=== PATIENT | female | born 1980 | race Caucasian/White ===

== ENCOUNTER 2018-08-06 07:36 | Emergency (ER) | payer BC, MEDICAID ==
--- NOTE | 2018-08-06 08:09 | EDM.PDOC ---
ED HPI GENERAL MEDICAL PROBLEM - General Chief Complaint: Lower Extremity Injury/Pain Stated Complaint: RT LEG Time Seen by Provider: 08/06/18 08:00 Source of Information: Reports: Patient History Limitations: Reports: No Limitations - History of Present Illness INITIAL COMMENTS - FREE TEXT/NARRATIVE: Slipped on ice, twisted right ankle last night at 2230, complains of pain and is unable to bear weight. Onset Date: 08/05/18 Onset Time: 22:30 Location: Reports: Lower Extremity, Right Quality: Reports: Ache Severity: Moderate Improves with: Reports: None Worsens with: Reports: Movement Context: Reports: Activity Associated Symptoms: Reports: No Other Symptoms Right Ankle Pain Score (Numeric/FACES): 2 - Related Data Allergies Allergy/AdvReac Type Severity Reaction Status Date / Time No Known Allergies Allergy Verified 08/06/18 07:52 Home Meds: Home Meds NK [No Known Home Meds] 08/06/18 [History] Past Medical History - Past Health History Medical/Surgical History: Denies Medical/Surgical History Review of Systems - Review of Systems Review Of Systems: ROS reveals no pertinent complaints other than HPI. ED EXAM, GENERAL - Physical Exam Exam: See Below Exam Limited By: No Limitations General Appearance: Alert, WD/WN, No Apparent Distress Nose: Normal Inspection Throat/Mouth: No Airway Compromise Head: Atraumatic, Normocephalic Neck: Full Range of Motion Respiratory/Chest: No Respiratory Distress Peripheral Pulses: 2+: Dorsalis Pedis (R) Extremities: Other (bilateral malleolar tenderness of right ankle with lateral malleolar swelling, ankle is stable) Neurological: Alert, Normal Cognition, No Motor/Sensory Deficits Psychiatric: Normal Affect Skin Exam: Warm, Dry, Intact Course - Vital Signs Last Recorded V/S: Last Vital Signs Temp 36.8 C 08/06/18 07:36 Pulse 100 08/06/18 07:36 Resp 18 08/06/18 07:36 BP 128/83 08/06/18 07:36 Pulse Ox 99 08/06/18 07:36 - Orders/Labs/Meds Orders: Active Orders 24 hr Category Date Time Status Splinting [RC] CONTINUOUS Care 08/06/18 08:29 Ordered Ankle Min 3V Rt [CR] Stat Exams 08/06/18 08:03 Taken - Radiology Interpretation Free Text/Narrative:: Right Ankle XR: No acute fracture or dislocation (ED provider interpretation) Departure - Departure Time of Disposition: 08:31 Disposition: Home, Self-Care 01 Condition: Good Clinical Impression: Right ankle sprain Qualifiers: Encounter type: initial encounter Involved ligament of ankle: unspecified ligament Qualified Code(s): S93.401A - Sprain of unspecified ligament of right ankle, initial encounter - Discharge Information *PRESCRIPTION DRUG MONITORING PROGRAM REVIEWED*: No *COPY OF PRESCRIPTION DRUG MONITORING REPORT IN PATIENT JONATHAN: Not Applicable Instructions: How to Use a Stirrup Ankle Brace, [id number], Ankle Sprain, [id number], Crutch Use, Adult, [id number] Referrals: Sixto Waldron DO [Physician] - Forms: ED Department Discharge, ED Return to Work/School Form Additional Instructions: Elevate, rest, ice, weight bear as tolerated, take Ibuprofen as needed, follow up with Orthopedics in 3-4 days if symptoms don't improve. - My Orders Last 24 Hours: My Active Orders 08/06/18 08:03 Ankle Min 3V Rt [CR] Stat 08/06/18 08:29 Splinting [RC] CONTINUOUS - Assessment/Plan Last 24 Hours: My Active Orders 08/06/18 08:03 Ankle Min 3V Rt [CR] Stat 08/06/18 08:29 Splinting [RC] CONTINUOUS
--- NOTE | 2018-08-06 10:37 | CR ---
INDICATION: Slipped on ice this a.m. RIGHT ANKLE: Three views of the right ankle were obtained, 08/06/18 - no comparisons. Four images were obtained. The ankle mortise appears to be intact without evidence of fracture, dislocation , or other definite bone or joint abnormality. There is noted soft tissue swelling overlying the lateral malleolus. If symptoms persist - if occult fracture site is suspected clinically, re- examination in 10-14 days may be helpful. MTDD
== END 2018-08-06 08:45 | disposition home or self-care (01) ==
LOC: FB.ED 07:36
DX: S93.401A Sprain of unspecified ligament of right ankle, initial encounter (principal); W00.0XXA Fall on same level due to ice and snow, initial encounter
CPT/HCPCS: 73610-RT; 99283-25